=== PATIENT | female | born 1985 | race Caucasian/White ===

== ENCOUNTER 2016-11-01 22:37 | Emergency (ER) | payer BC ==
[2016-11-01 22:44] VITALS: BP 104/80; PULSE 92; BMI 17.7
--- NOTE | 2016-11-01 23:38 | PDOC ---
History of Present Illness - General Chief Complaint: Injury Stated Complaint: TOE INJURY Time Seen by Provider: 11/01/16 23:29 History Source: Patient - History of Present Illness Initial Comments: 11/01/16 23:36 30 year old female with left 3rd toe pain s/p injury 1 day ago. patient currently in [facility] for detox for suboxone. patient sent for medical clearance. Timing/Duration: 24 hours Past History - Past Medical History Allergies/Adverse Reactions: Allergies Allergy/AdvReac Type Severity Reaction Status Date / Time No Known Allergies Allergy Verified 11/01/16 22:44 Other medical history: denies - Suicide/Smoking/Psychosocial Hx Smoking History: Never smoked Drug/Substance Use Hx: Yes *Physical Exam - Vital Signs Last Vital Signs Temp Pulse Resp BP Pulse Ox 92 H 18 104/80 99 11/01/16 22:41 11/01/16 22:41 11/01/16 22:41 11/01/16 22:41 - Physical Exam General Appearance: Yes: Appropriately Dressed Extremity: positive: Other (left third toe distal end red/ swollen) Integumentary: positive: Normal Color, Dry, Warm Neurologic: positive: Fully Oriented, Alert Medical Decision Making - Medical Decision Making 11/02/16 03:07 Patient to return to Detox in [facility]. [employer] Bette made aware. *DC/Admit/Observation/Transfer Diagnosis at time of Disposition: Sprain of toe, third, left Qualifiers: Encounter type: initial encounter Qualified Code(s): S93.505A - Unspecified sprain of left lesser toe(s), initial encounter - Discharge Dispostion Disposition: HOME - Referrals Referrals: Wander Harrell MD [Staff Physician] - - Patient Instructions Printed Discharge Instructions: Toe Sprain Additional Instructions: xray negative for fracture. please follow up outpatient with podiatry/ ortho
== END 2016-11-02 03:47 | disposition other institution (70) ==
LOC: JER 22:37
DX: S93.515A Sprain of interphalangeal joint of left lesser toe(s), initial encounter (principal); W22.8XXA Striking against or struck by other objects, initial encounter; Y93.89 Activity, other specified; Y92.89 Other specified places as the place of occurrence of the external cause; Y99.8 Other external cause status; F11.20 Opioid dependence, uncomplicated
CPT/HCPCS: 73660-TC; 99281-25

== ENCOUNTER 2016-11-02 04:49 | Inpatient (IN) | payer BC ==
[2016-11-02] MEDS ORDERED: METHADONE HCL 10 MG TABLET (FOR DETOX USE ONLY) PO ONE ×2 (04:50→23:00)
[2016-11-02] MEDS ORDERED: MAG HYDROX/AL HYDROX/SIMETH 30 ML UNIT-DOSE CUP PO PRN (04:50)
[2016-11-02] MEDS ORDERED: NICOTINE POLACRILEX 2 MG GUM BC PRN (04:50)
[2016-11-02] MEDS ORDERED: diazePAM 5 MG TABLET PO ONE (04:50)
[2016-11-02] MEDS ORDERED: MAGNESIUM CITRATE 300 ML BOTTLE PO PRN (04:50)
[2016-11-02] MEDS ORDERED: diphenhydrAMINE HCL 50 MG CAPSULE PO PRN (04:50)
[2016-11-02] MEDS ORDERED: ACETAMINOPHEN 325 MG TABLET (FP) PO PRN (04:50)
[2016-11-02] MEDS ORDERED: LOPERAMIDE HCL 2 MG CAPSULE PO PRN (04:50)
[2016-11-02] MEDS ORDERED: IBUPROFEN 400 MG TABLET (FP) PO PRN (04:50)
[2016-11-02] MEDS ORDERED: P-EPHED 60MG/TRIPROLIDI 2.5MG TABLET PO PRN (04:50)
[2016-11-02] MEDS ORDERED: MENTHOL/PHENOL 1 EACH UD MM PRN (04:50)
[2016-11-02] MEDS ORDERED: guaiFENesin/D-METHORPHAN HB 10 ML UNIT-DOSE CUPS PO PRN (04:50)
[2016-11-02] MEDS ORDERED: MAGNESIUM HYDROX 2400MG/30ML ORAL SUSPENSION 30 ML CUP PO PRN (04:50)
--- NOTE | 2016-11-02 04:59 | HP ---
COWS - Scale Resting Pulse: 1= [place] 81-100 Sweatin=Flushed/Facial Moisture Restless Observation: 5= Unable to Sit Still Pupil Size: 1= Pupils >than Normal Bone or Joint Aches: 4=Acute Joint/Muscle Pain Runny Nose/ Eye Tearin= Constantly Teary/Runny GI Upset > 30mins: 2= Nausea/Diarrhea Tremor Observation: 2= Slight Tremor Visible Yawning Observation: 0= None Anxiety or Irritability: 2=Irritable/Anxious Goose Flesh Skin: 0=Smooth Skin COWS Score: 23 CIWA Score - CIWA Score Nausea/Vomitin Muscle Tremors: 4-Moderate,w/Arms Extend Anxiety: 4-Mod. Anxious/Guarded Agitation: 4-Moderately Restless Paroxysmal Sweats: 3 Orientation: 0-Oriented Tacttile Disturbances: 3-Moderate Itch/Numb/Burn Auditory Disturbances: 0-None Visual Disturbances: 0-None Headache: 0-None Present CIWA-Ar Total Score: 21 Admission ROS [facility] - HPI Chief Complaint: C/O WITHDRAWAL SX'S. SEEKING DETOX TXMENT Allergies/Adverse Reactions: Allergies Allergy/AdvReac Type Severity Reaction Status Date / Time No Known Allergies Allergy Verified 11/01/16 22:44 History of Present Illness: 30 Y.O. FEMALE ADMITTED FOR DETOX. THIS IS CLIENTS FIRST TIME IN DETOX. DENIES ANY SIGNIFICANT CLEAN TIME. SELF REFERRED. USING OPIATES AND BENZO'S. CLIENT IS A POOR HISTORIAN. HESITANT AND MINIMIZING HER SUBSTANCE ABUSE Exam Limitations: No Limitations - Ebola screening Have you traveled outside of the country in the last 21 days: No Have you had contact with anyone from an Ebola affected area: No Have you been sick,other than usual withdrawal symptoms: No Do you have a fever: No - Review of Systems Constitutional: Chills, Loss of Appetite, Malaise, Night Sweats, Changes in sleep EENT: reports: Other (RINORRHEA) Respiratory: reports: No Symptoms reported Cardiac: reports: No Symptoms Reported GI: reports: Nausea, Poor Appetite, Abdominal cramping : reports: Other (HESITANCY) Musculoskeletal: reports: Back Pain, Joint Pain Integumentary: reports: No Symptoms Reported Neuro: reports: No Symptoms reported Endocrine: reports: No Symptoms Reported Hematology: reports: No Symptoms Reported Psychiatric: reports: Anxious, Depressed Other Systems: Reviewed and Negative Patient History - Patient Medical History Hx Anemia: No Hx Asthma: No Hx Chronic Obstructive Pulmonary Disease (COPD): No Hx Cancer: No Hx Cardiac Disorders: No Hx Congestive Heart Failure: No Hx Hypertension: No Hx Hypercholesterolemia: No Hx Pacemaker: No HX Cerebrovascular Accident: No Hx Seizures: No Hx Dementia: No Hx Diabetes: No Hx Gastrointestinal Disorders: No Hx Liver Disease: No Hx Genitourinary Disorders: No Hx Sexually Transmitted Disorders: No Hx Renal Disease (ESRD): No Hx Thyroid Disease: No Hx Human Immunodeficiency Virus (HIV): No Hx Hepatitis C: No Hx Depression: Yes Hx Suicide Attempt: No Hx Bipolar Disorder: No Hx Schizophrenia: No Other Medical History: ANXIETY - Patient Surgical History Past Surgical History: No - PPD History Previous Implant?: Yes Documented Results: Negative w/o proof Implanted On Prior [facility] Admission?: No PPD to be Administered?: Yes - Smoking Cessation Smoking history: Never smoked Cigars Per Day: 0 Hx Chewing Tobacco Use: No Initiated information on smoking cessation: No - Substance & Tx. History Hx Alcohol Use: No Hx Substance Use: Yes Substance Use Type: Cocaine, Heroin, Opiates, Tranquilizers (BENZO) Hx Substance Use Treatment: No - Substances Abused HEROIN Route: Inhalation Frequency: Daily Amount used: 1GM Age of first use: 30 (3 MONTHS AGO) Date of Last Use: 11/01/16 COCAINE Route: Inhalation Frequency: 3-6 times per week Amount used: $20 Age of first use: 29 Date of Last Use: 10/29/16 XANAX/VALIUM Route: Oral Frequency: 1-3 times last 30 days Amount used: 5MG Age of first use: 18 Date of Last Use: 11/01/16 Family Disease History - Family Disease History Family History: Denies Admission Physical Exam [facility] - Physical General Appearance: Yes: Mild Distress, Thin, Tremorous, Anxious HEENTM: Yes: EOMI, Normocephalic, LAUREN, Pharynx Normal Respiratory: Yes: Chest Non-Tender, Lungs Clear, Normal Breath Sounds, No Respiratory Distress, No Accessory Muscle Use Neck: Yes: No masses,lesions,Nodules, Supple, Trachea in good position Breast: Yes: Breast Exam Deferred Cardiology: Yes: Regular Rhythm, Regular Rate, S1, S2 Abdominal: Yes: Normal Bowel Sounds, Non Tender, Soft Genitourinary: Yes: Within Normal Limits Back: Yes: Normal Inspection Musculoskeletal: Yes: full range of Motion, Other (L FOOT 3RD DIGIT SPRAIN. SEEN AT [facility] NO FX) Extremities: Yes: Tremors, Other (L FOOT 3 RD TOE SPRAIN/ RED SWOLLEN AND SLIGHT DISCOLORATION) Neurological: Yes: medical records supervisor II-XII NML intact, Fully Oriented, Alert, Motor Strength 5/5 Integumentary: Yes: Clammy Lymphatic: Yes: Within Normal Limits - Diagnostic (1) Sprain of toe, third, left Current Visit: Yes Status: Acute Qualifiers: Encounter type: initial encounter Qualified Code(s): S93.505A - Unspecified sprain of left lesser toe(s), initial encounter (2) Opioid dependence with withdrawal Current Visit: Yes Status: Chronic (3) Cocaine dependence, uncomplicated Current Visit: Yes Status: Chronic (4) Sedative, hypnotic or anxiolytic dependence with withdrawal, uncomplicated Current Visit: Yes Status: Chronic Cleared for Admission S - Detox or Rehab S Level of Care: Medically Managed Detox Regimen/Protocol: Methadone/Valium BHS Breath Alcohol Content Breath Alcohol Content: 0 Vital Signs - Vital Signs Vital Signs Refused: No Temperature: 97 F Temperature Source: Oral Pulse Rate: 18 Respiratory Rate: 88 Blood Pressure: 119/70 BP Location: Left Arm Blood Pressure Position: Sitting - Height Height: 5 ft 6 in - Weight Weight: 51.71 kg Weight Measurement Method: Standing Scale Body Mass Index (BMI): 18.3 - Bowel Function Bowel Movement: No Urine Pregancy Test - Test Device Lot Number: [id number] Expiration Date: 05/14/18 - Control Horizontal Line in Upper Control Window?: Yes - Result Urine Test Results: Negative- NO Line Present Urine Drug Screen - Test Device Lot Number: [id number] Expiration Date: 07/14/18 - Control Is Test Valid: Yes - Results Drug Screen Negative: No Urine Drug Screen Results: WILFREDO-Cocaine, OPI-Opiates, BZO-Benzodiazepines
[2016-11-02 05:08] VITALS: BMI 18.3
[2016-11-02] MEDS: diazePAM 5 MG TABLET PO SCH ×3 (06:15→22:14)
[2016-11-02 09:54] LABS: MCH 28.7 pg (25.7-33.7); MCHC 34.7 g/dl (32.0-36.0); MEAN CELL VOLUME 82.6 fl (80-96); MEAN PLT VOLUME 10.1 fl (7.5-11.1); PLATELET COUNT 196 K/MM3 (134-434); RDW 13.1 % (11.6-15.6); WHITE BLOOD COUNT 7.3 K/mm3 (4.0-10.0)
[2016-11-02 09:59] LABS: ALBUMIN 3.4 g/dl (3.4-5.0); SGOT/AST 14 U/L (15-37)
[2016-11-02 10:02] LABS: ALK PHOS 58 U/L (45-117); ANION GAP 5 (8-16); BILIRUBIN,TOTAL 0.6 mg/dL (0.2-1.0); CALCIUM 8.7 mg/dL (8.5-10.1); CO2 28 mmol/L (21-32); CREATININE 0.8 mg/dL (0.55-1.02); GLUCOSE,RANDOM 109 mg/dL (74-106); SGPT/ALT 19 U/L (12-78); TOT PROT 6.3 g/dl (6.4-8.2)
--- NOTE | 2016-11-02 10:13 | PN ---
[facility] Progress Note Note: called by radiologist, xray revewlwed toe fx, patient informed, stable with pain started on naprosyn 500mg bi atc with protonix daiy.
[2016-11-02] MEDS: diazePAM 5 MG TABLET PO PRN ×2 (10:33→17:26)
[2016-11-02] MEDS: PRENATAL VITAMINS W/ FOLIC ACID TABLET (FP) PO SCH (10:33)
[2016-11-02] MEDS: NAPROXEN 500 MG TABLET (FP) PO SCH ×2 (11:42→22:14)
[2016-11-02] MEDS: PANTOPRAZOLE 40 MG TABLET (FP) PO SCH (11:42)
--- NOTE | 2016-11-02 11:53 | CONSULT ---
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 Substance Abuse History: Patient reports started heroin 4 months ago, first she was taking pain killers, she sniffs heroin daily, cocaine at age 9, she uses 2- 3 times a week for $20, Xanax age at first use - 18, 1-3 times a month. Medical History: pain to third left digit ( toe) due to the sprained Psychiatric History: patient reports history of depression and anxiety, about 4 months ago seen by private psychiatrist and was taking Celexa 20 mg daily, Wellbutrin SR150 mg daily and Gabapentin 400 mg po hs. Reports no history of psychiatric hospitalizations. Physical/Sexual Abuse/Trauma History: Denies history of sexual, physical and verbal abuse. Mental Status Exam - Mental Status Exam Alert and Oriented to: Time, Place, Person Cognitive Function: Grossly Intact Patient Appearance: Unkempt Mood: Sad, Anxious Affect: Mood Congruent Patient Behavior: Appropriate, Cooperative Speech Pattern: Clear, Appropriate Voice Loudness: Normal Thought Process: Intact, Goal Oriented Thought Disorder: Not Present Hallucinations: Denies Suicidal Ideation: Denies Homicidal Ideation: Denies Insight/Judgement: Fair Sleep: Fair Appetite: Fair Muscle strength/Tone: Normal Gait/Station: Normal Psychiatric Findings - Problem List ([place] 1, 2,3) (1) Cocaine dependence, uncomplicated Current Visit: Yes Status: Chronic (2) Opioid dependence with withdrawal Current Visit: Yes Status: Chronic (3) Sedative, hypnotic or anxiolytic dependence with withdrawal, uncomplicated Current Visit: Yes Status: Chronic (4) Depressive disorder Current Visit: Yes Status: Acute - Initial Treatment Plan Initial Treatment Plan: will continue Celexa 20 mg po daily, Wellbutrin 150 mg daily and Gabapentin 400 mg po hs.
[2016-11-02 14:15] LABS: URINE APPEARANCE CLEAR; URINE BILIRUBIN NEGATIVE (NEGATIVE); URINE BLOOD NEGATIVE (NEGATIVE); URINE COLOR LTYELLOW; URINE GLUCOSE (UA) NEGATIVE (NEGATIVE); URINE KETONE NEGATIVE (NEGATIVE); URINE LEUK ESTERASE TRACE (NEGATIVE); URINE NITRITE NEGATIVE (NEGATIVE); URINE PROTEIN NEGATIVE (NEGATIVE); URINE UROBILINOGEN NEGATIVE mg/dL (0.2-1.0)
[2016-11-02 14:18] LABS: URINE BACTERIA MANY /hpf (NONE SEEN); URINE RBC <1 /hpf (0-3); URINE WBC 2 /hpf (3-5)
[2016-11-02] MEDS ORDERED: cloNIDine HCL 0.1 MG TABLET PO ONE (14:57)
[2016-11-02] MEDS: CYCLOBENZAPRINE HCL 10 MG TABLET (FP) PO SCH ×2 (15:07→22:14)
[2016-11-02] MEDS: THIAMINE HCL 100 MG TABLET (FP) PO SCH (22:14)
[2016-11-02] MEDS: cloNIDine HCL 0.1 MG TABLET PO SCH (22:14)
[2016-11-02] MEDS: GABAPENTIN 400 MG CAPSULE (FP) PO SCH (22:14)
--- NOTE | 2016-11-02 22:22 | EKG ---
Test Reason : Blood Pressure : / mmHG Vent. Rate : 067 BPM Atrial Rate : 067 BPM P-R Int : 132 ms QRS Dur : 082 ms QT Int : 388 ms P-R-T Axes : 073 081 046 degrees QTc Int : 409 ms NORMAL SINUS RHYTHM WITH SINUS ARRHYTHMIA NORMAL ECG NO PREVIOUS ECGS AVAILABLE Confirmed by KIZZY JONES MD ([id number]) on 11/02/2016 10:22:24 PM Referred By: Confirmed By:KIZZY JONES MD
[2016-11-03] MEDS: diazePAM 5 MG TABLET PO SCH ×3 (05:34→22:12)
[2016-11-03] MEDS: CYCLOBENZAPRINE HCL 10 MG TABLET (FP) PO SCH ×3 (05:34→22:12)
[2016-11-03] MEDS ORDERED: METHADONE HCL 10 MG TABLET (FOR DETOX USE ONLY) PO SCH (10:00)
[2016-11-03] MEDS: PRENATAL VITAMINS W/ FOLIC ACID TABLET (FP) PO SCH (10:25)
[2016-11-03] MEDS: CITALOPRAM HYDROBROMIDE 20 MG TABLET (FP) PO SCH (10:25)
[2016-11-03] MEDS: PANTOPRAZOLE 40 MG TABLET (FP) PO SCH (10:25)
[2016-11-03] MEDS: diazePAM 5 MG TABLET PO PRN ×2 (10:25→22:12)
[2016-11-03] MEDS: cloNIDine HCL 0.1 MG TABLET PO SCH ×2 (10:25→22:11)
[2016-11-03] MEDS: NAPROXEN 500 MG TABLET (FP) PO SCH ×2 (10:25→22:11)
[2016-11-03] MEDS ORDERED: HALOPERIDOL 2 MG TABLET PO STA (11:19)
[2016-11-03] MEDS ORDERED: diphenhydrAMINE HCL 25 MG CAPSULE (FP) PO STA (11:20)
--- NOTE | 2016-11-03 11:26 | PN ---
Psychiatric Progress Note Vital Signs: Vital Signs Period Temp Pulse Resp BP Sys/Chau Pulse Ox Last 24 Hr 97.6 F-97.9 F 73-90 16-18 86-127/51-72 Date of Session: 11/03/16 Chief Complaint:: Anxiet, Irritability, agitation HPI: As per nursing stuff patient is agitated and anxious since today am Current Medications: Active Medications Generic Name Dose Route Start Last Admin Trade Name Freq PRN Reason Stop Dose Admin Acetaminophen 650 mg 11/02/16 04:50 Tylenol - PO Q4H PRN FEVER OR PAIN Al Hydroxide/Mg Hydroxide 30 ml 11/02/16 04:50 Mylanta Oral Suspension - PO Q6H PRN DYSPEPSIA Bupropion HCl 150 mg 11/03/16 10:00 11/03/16 10:25 Wellbutrin Xl - PO 150 mg DAILY REBA Administration Citalopram Hydrobromide 20 mg 11/03/16 10:00 11/03/16 10:25 Celexa - PO 20 mg DAILY REBA Administration Clonidine 0.1 mg 11/02/16 22:00 11/03/16 10:25 Catapres - PO 0.1 mg BID REBA Administration Cyclobenzaprine HCl 10 mg 11/02/16 15:00 11/03/16 05:34 Flexeril - PO 10 mg TID REBA Administration Diazepam 10 mg 11/02/16 04:50 11/03/16 10:25 Valium - PO 11/05/16 04:50 10 mg Q4H PRN Administration WITHDRAWAL(CONT SUBST) Diazepam 5 mg 11/02/16 06:00 11/03/16 05:34 Valium - PO 11/03/16 22:01 5 mg TID REBA Administration Diazepam 5 mg 11/04/16 10:00 Valium - PO 11/05/16 22:01 BID REBA Diazepam 5 mg 11/06/16 10:00 Valium - PO 11/06/16 10:01 DAILY REBA Diphenhydramine HCl 50 mg 11/02/16 04:50 11/02/16 22:14 Benadryl - PO 50 mg HSMR1 PRN Administration INSOMNIA Diphenhydramine HCl 25 mg 11/03/16 11:20 Benadryl - PO 11/03/16 11:21 ONCE STA Eucalyptus/Menthol/Phenol/Sorbitol 1 each 11/02/16 04:50 Cepastat Lozenge - MM Q4H PRN SORE THROAT Gabapentin 400 mg 11/02/16 22:00 11/02/16 22:14 Neurontin - PO 400 mg HS REBA Administration Guaifenesin 10 ml 11/02/16 04:50 Robitussin Dm - PO Q6H PRN COUGH Haloperidol 2 mg 11/03/16 11:19 Haldol - PO 11/03/16 11:20 ONCE STA Haloperidol 1 mg 11/03/16 11:20 Haldol - PO Q4HWA PRN AGITATION Hydroxyzine Pamoate 50 mg 11/02/16 04:50 Vistaril - PO Q4H PRN AGITATION Loperamide HCl 4 mg 11/02/16 04:50 Imodium - PO Q6H PRN DIARRHEA Magnesium Citrate 300 ml 11/02/16 04:50 Citroma - PO Q48H PRN CONSTIPATION Magnesium Hydroxide 30 ml 11/02/16 04:50 Milk Of Magnesia - PO DAILY PRN CONSTIPATION Methadone HCl 10 mg 11/06/16 10:00 Dolophine - PO 11/06/16 10:01 DAILY REBA Methadone HCl 15 mg 11/04/16 10:00 Dolophine - PO 11/05/16 10:01 DAILY REBA Methadone HCl 5 mg 11/07/16 06:00 Dolophine - PO 11/07/16 06:01 DAILY@0600 REBA Naproxen 500 mg 11/02/16 10:15 11/03/16 10:25 Naprosyn - PO 500 mg BID REBA Administration Nicotine Polacrilex 2 mg 11/02/16 04:50 Nicorette Gum - BC Q2H PRN NICOTINE REPLACEMENT RX Pantoprazole Sodium 40 mg 11/02/16 10:41 11/03/16 10:25 Protonix - PO 40 mg DAILY REBA Administration Multivit/Folic Acid/Iron 1 tab 11/02/16 10:00 11/03/16 10:25 Vitamins ([facility]) - PO 1 tab DAILY REBA Administration Pseudoephedrine/Triprolidine 1 combo 11/02/16 04:50 Actifed - PO TID PRN NASAL CONGESTION Thiamine HCl 100 mg 11/02/16 22:00 11/02/16 22:14 Vitamin B1 - PO 100 mg HS REBA Administration Medication(s) Change(s): Haldol 2mg pom stat. Benadryl 25mg po stat. Haldol 1mg po prn q4 for anxiety and agitation Mental Status Exam - Mental Status Exam Alert and Oriented to: Person Cognitive Function: Fair Patient Appearance: Unkempt Mood: Anxious, Irritable Affect: Mood Congruent Patient Behavior: Cooperative Speech Pattern: Appropriate Voice Loudness: Mildly Soft/Quiet Thought Process: Goal Oriented Thought Disorder: Being Controlled Hallucinations: Denies Suicidal Ideation: Denies Homicidal Ideation: Denies Insight/Judgement: Fair Sleep: Difficulty falling asleep Appetite: Weight gain Muscle strength/Tone: Normal Gait/Station: Normal Additional Comments: Haldol 2mg pom stat. Benadryl 25mg po stat. Haldol 1mg po prn q4 for anxiety and agitation Psychiatric Treatment Plan - Problem List (1) Depressive disorder Current Visit: Yes (2) Cocaine dependence, uncomplicated Current Visit: Yes (3) Opioid dependence with withdrawal Current Visit: Yes (4) Sedative, hypnotic or anxiolytic dependence with withdrawal, uncomplicated Current Visit: Yes (5) Drug-induced mood disorder Current Visit: Yes
[2016-11-03] MEDS ORDERED: HALOPERIDOL 1 MG TABLET (FP) PO STA (11:28)
--- NOTE | 2016-11-03 11:55 | PN ---
[facility] CIWA - CIWA Score Nausea/Vomitin-No Nausea/No Vomiting Muscle Tremors: 4-Moderate,w/Arms Extend Anxiety: 3 Agitation: 4-Moderately Restless Paroxysmal Sweats: 3 Orientation: 0-Oriented Tacttile Disturbances: 0-None Auditory Disturbances: 0-None Visual Disturbances: 0-None Headache: 0-None Present CIWA-Ar Total Score: 14 S COWS - Scale Resting Pulse: 1= [place] 81-100 Sweatin=Flushed/Facial Moisture Restless Observation: 1= Difficult to Sit Still Pupil Size: 0= Normal to Room Light Bone or Joint Aches: 2= Severe Diffuse Aches Runny Nose/ Eye Tearin= Runny Nose/Eyes GI Upset > 30mins: 2= Nausea/Diarrhea Tremor Observation of Outstretched Hands: 2= Slight Tremor Visible Yawning Observation: 2= >3x During Session Anxiety or Irritability: 2=Irritable/Anxious Goose Flesh Skin: 3=[place] COWS Score: 19 [facility] Progress Note (SOAP) Subjective: agitation anxiety teary sweats body aches irritable interrupted sleep Objective: 11/03/16 11:53 Vital Signs Temperature 97.7 F 11/03/16 10:26 Pulse Rate 81 11/03/16 10:26 Respiratory Rate 18 11/03/16 10:26 Blood Pressure 104/65 11/03/16 10:26 O2 Sat by Pulse Oximetry (%) Laboratory Tests 11/02/16 11/02/16 11/02/16 07:00 07:00 07:00 WBC 7.3 RBC 4.24 Hgb 12.2 Hct 35.0 MCV 82.6 MCH 28.7 MCHC 34.7 RDW 13.1 Plt Count 196 MPV 10.1 Sodium 139 Potassium 3.6 Chloride 106 Carbon Dioxide 28 Anion Gap 5 L BUN 9 Creatinine 0.8 Creat Clearance w eGFR > 60 Random Glucose 109 H Calcium 8.7 Total Bilirubin 0.6 AST 14 L ALT 19 Alkaline Phosphatase 58 Total Protein 6.3 L Albumin 3.4 Urine Color Urine Appearance Urine pH Ur Specific [place] Urine Protein Urine Glucose (UA) Urine Ketones Urine Blood Urine Nitrite Urine Bilirubin Urine Urobilinogen Urine RBC Urine WBC Ur Epithelial Cells Urine Bacteria RPR Titer Nonreactive 11/02/16 08:30 WBC RBC Hgb Hct MCV MCH MCHC RDW Plt Count MPV Sodium Potassium Chloride Carbon Dioxide Anion Gap BUN Creatinine Creat Clearance w eGFR Random Glucose Calcium Total Bilirubin AST ALT Alkaline Phosphatase Total Protein Albumin Urine Color Ltyellow Urine Appearance Clear Urine pH 7.0 Ur Specific [place] 1.010 Urine Protein Negative Urine Glucose (UA) Negative Urine Ketones Negative Urine Blood Negative Urine Nitrite Negative Urine Bilirubin Negative Urine Urobilinogen Negative Urine RBC <1 Urine WBC 2 Ur Epithelial Cells Few Urine Bacteria Many RPR Titer awake/alert ambulating no acute distress Assessment: 11/03/16 11:54 withdrawal sx Plan: continue detox increase fluids psych ordered for revisit
[2016-11-03] MEDS: THIAMINE HCL 100 MG TABLET (FP) PO SCH (22:11)
[2016-11-03] MEDS: GABAPENTIN 400 MG CAPSULE (FP) PO SCH (22:11)
[2016-11-03] MEDS: DOCUSATE SODIUM 100 MG CAPSULE (FP) PO SCH (22:12)
[2016-11-04] MEDS: CYCLOBENZAPRINE HCL 10 MG TABLET (FP) PO SCH ×3 (05:54→22:25)
[2016-11-04] MEDS: diazePAM 5 MG TABLET PO PRN ×2 (05:55→14:21)
[2016-11-04] MEDS: cloNIDine HCL 0.1 MG TABLET PO SCH ×2 (10:33→22:24)
[2016-11-04] MEDS: PANTOPRAZOLE 40 MG TABLET (FP) PO SCH (10:33)
[2016-11-04] MEDS: diazePAM 5 MG TABLET PO SCH ×2 (10:33→22:26)
[2016-11-04] MEDS: CITALOPRAM HYDROBROMIDE 20 MG TABLET (FP) PO SCH (10:33)
[2016-11-04] MEDS: METHADONE HCL 5 MG TABLET (FOR DETOX USE ONLY) PO SCH (10:33)
[2016-11-04] MEDS: PRENATAL VITAMINS W/ FOLIC ACID TABLET (FP) PO SCH (10:33)
[2016-11-04] MEDS: NAPROXEN 500 MG TABLET (FP) PO SCH ×2 (10:33→22:26)
[2016-11-04] MEDS: HALOPERIDOL 1 MG TABLET (FP) PO PRN ×2 (11:28→22:26)
[2016-11-04] MEDS: hydrOXYzine PAMOATE 50 MG CAPSULE (FP) PO PRN (11:29)
--- NOTE | 2016-11-04 12:29 | PN ---
[facility] CIWA - CIWA Score Nausea/Vomitin-No Nausea/No Vomiting Muscle Tremors: 4-Moderate,w/Arms Extend Anxiety: 3 Agitation: 4-Moderately Restless Paroxysmal Sweats: 3 Orientation: 0-Oriented Tacttile Disturbances: 0-None Auditory Disturbances: 0-None Visual Disturbances: 0-None Headache: 0-None Present CIWA-Ar Total Score: 14 S COWS - Scale Resting Pulse: 1= [place] 81-100 Sweatin=Flushed/Facial Moisture Restless Observation: 1= Difficult to Sit Still Pupil Size: 0= Normal to Room Light Bone or Joint Aches: 1= Mild Discomfort Runny Nose/ Eye Tearin= None GI Upset > 30mins: 0= None Tremor Observation of Outstretched Hands: 2= Slight Tremor Visible Yawning Observation: 2= >3x During Session Anxiety or Irritability: 2=Irritable/Anxious Goose Flesh Skin: 0=Smooth Skin COWS Score: 11 S Progress Note (SOAP) Subjective: sweats irritable interrupted sleep agitation Objective: 11/04/16 12:28 Vital Signs Temperature 97.7 F 11/04/16 09:52 Pulse Rate 88 11/04/16 09:52 Respiratory Rate 16 11/04/16 09:52 Blood Pressure 106/58 11/04/16 09:52 O2 Sat by Pulse Oximetry (%) Laboratory Tests 11/02/16 11/02/16 11/02/16 07:00 07:00 07:00 WBC 7.3 RBC 4.24 Hgb 12.2 Hct 35.0 MCV 82.6 MCH 28.7 MCHC 34.7 RDW 13.1 Plt Count 196 MPV 10.1 Sodium 139 Potassium 3.6 Chloride 106 Carbon Dioxide 28 Anion Gap 5 L BUN 9 Creatinine 0.8 Creat Clearance w eGFR > 60 Random Glucose 109 H Calcium 8.7 Total Bilirubin 0.6 AST 14 L ALT 19 Alkaline Phosphatase 58 Total Protein 6.3 L Albumin 3.4 Urine Color Urine Appearance Urine pH Ur Specific [place] Urine Protein Urine Glucose (UA) Urine Ketones Urine Blood Urine Nitrite Urine Bilirubin Urine Urobilinogen Urine RBC Urine WBC Ur Epithelial Cells Urine Bacteria RPR Titer Nonreactive 11/02/16 08:30 WBC RBC Hgb Hct MCV MCH MCHC RDW Plt Count MPV Sodium Potassium Chloride Carbon Dioxide Anion Gap BUN Creatinine Creat Clearance w eGFR Random Glucose Calcium Total Bilirubin AST ALT Alkaline Phosphatase Total Protein Albumin Urine Color Ltyellow Urine Appearance Clear Urine pH 7.0 Ur Specific [place] 1.010 Urine Protein Negative Urine Glucose (UA) Negative Urine Ketones Negative Urine Blood Negative Urine Nitrite Negative Urine Bilirubin Negative Urine Urobilinogen Negative Urine RBC <1 Urine WBC 2 Ur Epithelial Cells Few Urine Bacteria Many RPR Titer aaox3 ambulating no acute distress Assessment: 11/04/16 12:29 withdrawal sx Plan: continue detox increase fluids
[2016-11-04] MEDS: DOCUSATE SODIUM 100 MG CAPSULE (FP) PO SCH (22:24)
[2016-11-04] MEDS: GABAPENTIN 400 MG CAPSULE (FP) PO SCH (22:25)
[2016-11-04] MEDS: THIAMINE HCL 100 MG TABLET (FP) PO SCH (22:26)
[2016-11-05] MEDS: CYCLOBENZAPRINE HCL 10 MG TABLET (FP) PO SCH ×3 (06:05→22:31)
--- NOTE | 2016-11-05 10:25 | PN ---
[facility] Progress Note (SOAP) Subjective: nausa, sweats, interrupteed sleep, anxiety, tremors Objective: 11/05/16 10:22 Vital Signs - 8 hr 11/05/16 11/05/16 07:17 10:08 Temperature 97.2 F L 97.3 F L Pulse Rate 81 84 Respiratory 18 18 Rate Blood Pressure 99/71 99/60 Laboratory Tests 11/02/16 11/02/16 11/02/16 07:00 07:00 07:00 WBC 7.3 RBC 4.24 Hgb 12.2 Hct 35.0 MCV 82.6 MCH 28.7 MCHC 34.7 RDW 13.1 Plt Count 196 MPV 10.1 Sodium 139 Potassium 3.6 Chloride 106 Carbon Dioxide 28 Anion Gap 5 L BUN 9 Creatinine 0.8 Creat Clearance w eGFR > 60 Random Glucose 109 H Calcium 8.7 Total Bilirubin 0.6 AST 14 L ALT 19 Alkaline Phosphatase 58 Total Protein 6.3 L Albumin 3.4 Urine Color Urine Appearance Urine pH Ur Specific [place] Urine Protein Urine Glucose (UA) Urine Ketones Urine Blood Urine Nitrite Urine Bilirubin Urine Urobilinogen Urine RBC Urine WBC Ur Epithelial Cells Urine Bacteria RPR Titer Nonreactive 11/02/16 08:30 WBC RBC Hgb Hct MCV MCH MCHC RDW Plt Count MPV Sodium Potassium Chloride Carbon Dioxide Anion Gap BUN Creatinine Creat Clearance w eGFR Random Glucose Calcium Total Bilirubin AST ALT Alkaline Phosphatase Total Protein Albumin Urine Color Ltyellow Urine Appearance Clear Urine pH 7.0 Ur Specific [place] 1.010 Urine Protein Negative Urine Glucose (UA) Negative Urine Ketones Negative Urine Blood Negative Urine Nitrite Negative Urine Bilirubin Negative Urine Urobilinogen Negative Urine RBC <1 Urine WBC 2 Ur Epithelial Cells Few Urine Bacteria Many RPR Titer Assessment: 11/05/16 10:23 withdrawal sx Plan: cont detox, fluids, encourage ambulation
[2016-11-05] MEDS: diazePAM 5 MG TABLET PO SCH ×2 (10:48→22:31)
[2016-11-05] MEDS: METHADONE HCL 5 MG TABLET (FOR DETOX USE ONLY) PO SCH (10:48)
[2016-11-05] MEDS: CITALOPRAM HYDROBROMIDE 20 MG TABLET (FP) PO SCH (10:48)
[2016-11-05] MEDS: PANTOPRAZOLE 40 MG TABLET (FP) PO SCH (10:48)
[2016-11-05] MEDS: PRENATAL VITAMINS W/ FOLIC ACID TABLET (FP) PO SCH (10:48)
[2016-11-05] MEDS: NAPROXEN 500 MG TABLET (FP) PO SCH ×2 (10:48→22:31)
[2016-11-05] MEDS: cloNIDine HCL 0.1 MG TABLET PO SCH ×2 (10:49→22:30)
[2016-11-05] MEDS: hydrOXYzine PAMOATE 50 MG CAPSULE (FP) PO PRN (17:18)
[2016-11-05] MEDS: HALOPERIDOL 1 MG TABLET (FP) PO PRN (17:18)
[2016-11-05] MEDS: THIAMINE HCL 100 MG TABLET (FP) PO SCH (22:30)
[2016-11-05] MEDS: DOCUSATE SODIUM 100 MG CAPSULE (FP) PO SCH (22:30)
[2016-11-05] MEDS: GABAPENTIN 400 MG CAPSULE (FP) PO SCH (22:30)
[2016-11-06] MEDS: CYCLOBENZAPRINE HCL 10 MG TABLET (FP) PO SCH (05:54)
[2016-11-06] MEDS: hydrOXYzine PAMOATE 50 MG CAPSULE (FP) PO PRN (06:15)
[2016-11-06] MEDS ORDERED: METHADONE HCL 10 MG TABLET (FOR DETOX USE ONLY) PO SCH (10:00)
[2016-11-06] MEDS ORDERED: diazePAM 5 MG TABLET PO SCH (10:00)
--- NOTE | 2016-11-06 10:23 | PN ---
[facility] Progress Note (SOAP) Subjective: alert,no complaint Objective: 11/06/16 10:21 Vital Signs Temperature 98.1 F 11/06/16 06:31 Pulse Rate 76 11/06/16 06:31 Respiratory Rate 18 11/06/16 06:31 Blood Pressure 117/69 11/06/16 06:31 O2 Sat by Pulse Oximetry (%) Assessment: 11/06/16 10:22 patient is stable for discharge Plan: patient would like to be discharged,stable for discharge,did not want to go to rehab,discharge today
--- NOTE | 2016-11-06 10:25 | DS ---
[facility] Detox Discharge Summary Admission Date: 11/02/16 Discharge Date: 11/06/16 - History Present History: Cocaine Dependence, Opioid Dependence, Sedative Dependence Additional Comments: patient is stable for discharge today,follow up with after care program as arrangement - Physical Exam Results Vital Signs: Vital Signs Temperature 98.1 F 11/06/16 06:31 Pulse Rate 76 11/06/16 06:31 Respiratory Rate 18 11/06/16 06:31 Blood Pressure 117/69 11/06/16 06:31 O2 Sat by Pulse Oximetry (%) - Treatment Hospital Course: Detox Protocol Followed, Detoxed Safely, Responded well, Discharged Condition Good Patient has Accepted a Rehab Referral to: declined - Medication Discharge Medications: Ambulatory Orders Bupropion HCl [Wellbutrin Sr] 150 mg PO DAILY #30 tab 11/02/16 Bupropion HCl [Wellbutrin Sr] 150 mg PO DAILY #30 tab 11/02/16 Citalopram Hydrobromide [Celexa -] 10 mg PO DAILY 11/02/16 Citalopram Hydrobromide [Celexa -] 20 mg PO DAILY #30 tablet 11/02/16 Gabapentin [Neurontin -] 400 mg PO HS #30 tab 11/02/16 - Diagnosis (1) Depressive disorder Current Visit: Yes Status: Acute (2) Cocaine dependence, uncomplicated Current Visit: Yes Status: Chronic (3) Drug-induced mood disorder Current Visit: Yes Status: Chronic (4) Opioid dependence with withdrawal Current Visit: Yes Status: Chronic (5) Sedative, hypnotic or anxiolytic dependence with withdrawal, uncomplicated Current Visit: Yes Status: Chronic (6) Fracture of toe of left foot Current Visit: Yes Status: Acute Qualifiers: Encounter type: initial encounter Toe: lesser toe Fracture type: closed Phalanx: distal Fracture alignment: nondisplaced Qualified Code(s): S92.535A - Nondisplaced fracture of distal phalanx of left lesser toe(s ), initial encounter for closed fracture - AMA Did Patient Leave Against Medical Advice: No
[2016-11-06] MEDS: PANTOPRAZOLE 40 MG TABLET (FP) PO SCH (10:29)
[2016-11-06] MEDS: CITALOPRAM HYDROBROMIDE 20 MG TABLET (FP) PO SCH (10:29)
[2016-11-06] MEDS: NAPROXEN 500 MG TABLET (FP) PO SCH (10:29)
[2016-11-06] MEDS: cloNIDine HCL 0.1 MG TABLET PO SCH (10:29)
[2016-11-06] MEDS: PRENATAL VITAMINS W/ FOLIC ACID TABLET (FP) PO SCH (10:29)
[2016-11-06 11:13] VITALS: BP 107/57; PULSE 90; TEMP 97.9
[2016-11-07] MEDS ORDERED: METHADONE HCL 5 MG TABLET (FOR DETOX USE ONLY) PO SCH (06:00)
== END 2016-11-06 12:45 | disposition home or self-care (01) | DRG 774 ==
LOC: YASAS 04:49 → Y6N 04:51
PROVIDERS: ADMIT Internal Medicine; ATTEND Internal Medicine
PROC: HZ2ZZZZ Detoxification Services for Substance Abuse Treatment (ICD-10-PCS; principal; 2016-11-02)
DX: F10.230 Alcohol dependence with withdrawal, uncomplicated (principal); F13.230 Sedative, hypnotic or anxiolytic dependence with withdrawal, uncomplicated; F14.20 Cocaine dependence, uncomplicated; F39 Unspecified mood [affective] disorder; F19.24 Other psychoactive substance dependence with psychoactive substance-induced mood disorder; S92.535A Nondisplaced fracture of distal phalanx of left lesser toe(s), initial encounter for closed fracture; W22.8XXA Striking against or struck by other objects, initial encounter; Y93.89 Activity, other specified; Y92.89 Other specified places as the place of occurrence of the external cause
CPT/HCPCS: 36415; 80053; 81003; 81015; 85027; 86593; 86803; 93005; 93010

== ENCOUNTER 2020-03-24 10:19 | Inpatient (IN) | payer BC ==
[2020-03-24 11:12] VITALS: BMI 19.7
[2020-03-24] MEDS ORDERED: MAGNESIUM CITRATE 300 ML BOTTLE PO PRN (11:39)
[2020-03-24] MEDS ORDERED: MENTHOL/PHENOL 1 EACH UD MM PRN (11:39)
[2020-03-24] MEDS ORDERED: BISMUTH SUBSALICYLATE 524 MG/30 ML UD PO PRN (11:39)
[2020-03-24] MEDS ORDERED: ONDANSETRON *ODT* 4 MG TABLET SL PRN (11:39)
[2020-03-24] MEDS ORDERED: MAGNESIUM HYDROX 2400MG/30ML ORAL SUSPENSION 30 ML CUP PO PRN (11:39)
[2020-03-24] MEDS ORDERED: ACETAMINOPHEN 325 MG TABLET (FP) PO PRN ×2 (11:39)
[2020-03-24] MEDS ORDERED: METHADONE HCL 10 MG TABLET (FOR DETOX USE ONLY) PO ONE ×2 (11:39→12:45)
[2020-03-24] MEDS ORDERED: MAG HYDROX/AL HYDROX/SIMETH 30 ML UNIT-DOSE CUP PO PRN (11:39)
[2020-03-24] MEDS ORDERED: IBUPROFEN 400 MG TABLET (FP) PO PRN (11:39)
[2020-03-24] MEDS ORDERED: METHADONE (DETOX) 20 MG, METHADONE (DETOX) 5 MG PO ONE (12:15)
[2020-03-24] MEDS ORDERED: METHADONE (DETOX) 10 MG, METHADONE (DETOX) 5 MG PO ONE (12:15)
[2020-03-24] MEDS ORDERED: METHADONE HCL 10 MG TABLET (FOR DETOX USE ONLY) ONE (12:32)
[2020-03-24] MEDS ORDERED: chlordiazePOXIDE HCL 25 MG CAPSULE ONE (12:32)
[2020-03-24] MEDS ORDERED: METHOCARBAMOL 500 MG TABLET ONE (12:32)
[2020-03-24] MEDS: chlordiazePOXIDE HCL 25 MG CAPSULE PO SCH ×3 (12:35→22:10)
[2020-03-24] MEDS: METHOCARBAMOL 500 MG TABLET PO PRN (12:37)
[2020-03-24] MEDS: PRENATAL VITAMINS W/ FOLIC ACID TABLET (FP) PO SCH (13:41)
[2020-03-24] MEDS: NICOTINE POLACRILEX 2 MG GUM BUC PRN ×2 (13:42→17:56)
[2020-03-24] MEDS: hydrOXYzine PAMOATE 25 MG CAPSULE (FP) PO SCH ×3 (14:16→22:10)
[2020-03-24 15:57] LABS: POTASSIUM 3.9 mmol/L (3.5-5.1)
[2020-03-24 15:59] LABS: ALBUMIN 4.1 g/dl (3.4-5.0); BLOOD UREA NITROGEN 11.9 mg/dL (7-18); CALCIUM 9.4 mg/dL (8.5-10.1)
[2020-03-24 16:03] LABS: CREATININE 0.8 mg/dL (0.55-1.3)
[2020-03-24 16:04] LABS: BILIRUBIN,TOTAL 0.8 mg/dL (0.2-1); TOT PROT 7.3 g/dl (6.4-8.2)
[2020-03-24 16:08] LABS: HEMATOCRIT 40.5 % (32.4-45.2); HEMOGLOBIN 13.9 GM/dL (10.7-15.3); MCH 29.5 pg (25.7-33.7); MCHC 34.4 g/dl (32.0-36.0); MEAN CELL VOLUME 85.9 fl (80-96); MEAN PLT VOLUME 10.6 fl (7.5-11.1); RBC 4.71 M/mm3 (3.60-5.2); RDW 13.4 % (11.6-15.6); WHITE BLOOD COUNT 5.7 K/mm3 (4.0-10.0)
[2020-03-24 16:56] LABS: HIV INTERPRETATION NEGATIVE (NEGATIVE)
[2020-03-24 17:02] LABS: PLATELET COUNT 171 K/MM3 (134-434)
[2020-03-24] MEDS: THIAMINE HCL 100 MG TABLET (FP) PO SCH (22:10)
[2020-03-24] MEDS: MELATONIN 5 MG TABLETS PO SCH (22:10)
[2020-03-25] MEDS: chlordiazePOXIDE HCL 25 MG CAPSULE PO PRN ×3 (01:26→20:31)
[2020-03-25] MEDS: chlordiazePOXIDE HCL 25 MG CAPSULE PO SCH ×4 (06:32→22:19)
[2020-03-25] MEDS: hydrOXYzine PAMOATE 25 MG CAPSULE (FP) PO SCH ×5 (06:33→22:19)
[2020-03-25] MEDS: NICOTINE POLACRILEX 2 MG GUM BUC PRN ×3 (06:33→20:33)
[2020-03-25] MEDS ORDERED: METHADONE HCL 5 MG TABLET (FOR DETOX USE ONLY) ONE (08:38)
[2020-03-25] MEDS ORDERED: METHADONE HCL 10 MG TABLET (FOR DETOX USE ONLY) ONE (08:38)
[2020-03-25] MEDS ORDERED: METHADONE (DETOX) 20 MG, METHADONE (DETOX) 5 MG PO ONE (10:00)
[2020-03-25] MEDS: NICOTINE 21 MG/24 HOURS TOPICAL PATCH TD SCH (10:06)
[2020-03-25] MEDS: PRENATAL VITAMINS W/ FOLIC ACID TABLET (FP) PO SCH (10:06)
[2020-03-25] MEDS: METHOCARBAMOL 500 MG TABLET PO PRN ×2 (12:54→22:19)
[2020-03-25] MEDS: cloNIDine HCL 0.1 MG TABLET PO PRN (17:46)
[2020-03-25] MEDS: THIAMINE HCL 100 MG TABLET (FP) PO SCH (22:19)
[2020-03-26] MEDS ORDERED: chlordiazePOXIDE HCL 25 MG CAPSULE PO SCH (05:00)
[2020-03-26] MEDS: hydrOXYzine PAMOATE 25 MG CAPSULE (FP) PO SCH ×5 (05:35→22:10)
[2020-03-26] MEDS: NICOTINE POLACRILEX 2 MG GUM BUC PRN ×4 (05:39→17:38)
[2020-03-26] MEDS ORDERED: METHADONE HCL 10 MG TABLET (FOR DETOX USE ONLY) PO ONE (10:00)
[2020-03-26] MEDS: cloNIDine HCL 0.1 MG TABLET PO PRN (10:23)
[2020-03-26] MEDS: PRENATAL VITAMINS W/ FOLIC ACID TABLET (FP) PO SCH (10:24)
[2020-03-26] MEDS: NICOTINE 21 MG/24 HOURS TOPICAL PATCH TD SCH (10:24)
[2020-03-26] MEDS: METHOCARBAMOL 500 MG TABLET PO PRN ×2 (12:38→20:39)
[2020-03-26] MEDS: diazePAM 5 MG TABLET PO SCH ×3 (13:15→22:10)
[2020-03-26] MEDS ORDERED: COLLOIDAL OATMEAL 1 BAR EACH TP PRN (14:08)
[2020-03-26] MEDS: MELATONIN 5 MG TABLETS PO SCH ×2 (22:10)
[2020-03-26] MEDS: THIAMINE HCL 100 MG TABLET (FP) PO SCH (22:11)
[2020-03-27] MEDS ORDERED: chlordiazePOXIDE HCL 10 MG CAPSULE PO PRN
[2020-03-27] MEDS: diazePAM 5 MG TABLET PO PRN ×2 (01:45→18:56)
[2020-03-27] MEDS ORDERED: chlordiazePOXIDE HCL 10 MG CAPSULE PO SCH (05:00)
[2020-03-27] MEDS: diazePAM 5 MG TABLET PO SCH ×3 (05:53→22:10)
[2020-03-27] MEDS: hydrOXYzine PAMOATE 25 MG CAPSULE (FP) PO SCH ×5 (05:54→22:11)
[2020-03-27] MEDS: METHOCARBAMOL 500 MG TABLET PO PRN ×3 (05:54→18:56)
[2020-03-27] MEDS: NICOTINE POLACRILEX 2 MG GUM BUC PRN ×2 (05:55→12:42)
[2020-03-27] MEDS ORDERED: METHADONE HCL 5 MG TABLET (FOR DETOX USE ONLY) ONE (08:44)
[2020-03-27] MEDS ORDERED: METHADONE HCL 10 MG TABLET (FOR DETOX USE ONLY) ONE (08:44)
[2020-03-27] MEDS ORDERED: METHADONE (DETOX) 10 MG, METHADONE (DETOX) 5 MG PO ONE (10:00)
[2020-03-27] MEDS: cloNIDine HCL 0.1 MG TABLET PO SCH ×2 (10:26→22:11)
[2020-03-27] MEDS: PRENATAL VITAMINS W/ FOLIC ACID TABLET (FP) PO SCH (10:28)
[2020-03-27] MEDS: NICOTINE 21 MG/24 HOURS TOPICAL PATCH TD SCH (10:28)
[2020-03-27] MEDS: THIAMINE HCL 100 MG TABLET (FP) PO SCH (22:11)
[2020-03-27] MEDS: MELATONIN 5 MG TABLETS PO SCH (22:12)
[2020-03-28] MEDS ORDERED: chlordiazePOXIDE HCL 10 MG CAPSULE PO SCH (05:00)
[2020-03-28] MEDS: diazePAM 5 MG TABLET PO PRN (06:04)
[2020-03-28] MEDS: hydrOXYzine PAMOATE 25 MG CAPSULE (FP) PO SCH ×3 (06:05→13:40)
[2020-03-28] MEDS: NICOTINE POLACRILEX 2 MG GUM BUC PRN ×3 (06:08→18:45)
[2020-03-28] MEDS: METHOCARBAMOL 500 MG TABLET PO PRN ×3 (08:39→22:22)
[2020-03-28] MEDS: NICOTINE 21 MG/24 HOURS TOPICAL PATCH TD SCH (09:22)
[2020-03-28] MEDS: diazePAM 5 MG TABLET PO SCH ×2 (09:22→22:22)
[2020-03-28] MEDS: PRENATAL VITAMINS W/ FOLIC ACID TABLET (FP) PO SCH (09:24)
[2020-03-28] MEDS ORDERED: METHADONE HCL 10 MG TABLET (FOR DETOX USE ONLY) PO ONE (10:00)
[2020-03-28] MEDS: cloNIDine HCL 0.1 MG TABLET PO SCH ×2 (10:53→22:22)
[2020-03-28] MEDS ORDERED: hydrOXYzine PAMOATE 25 MG CAPSULE (FP) PO SCH ×2 (17:15→22:00)
[2020-03-28] MEDS: hydrOXYzine PAMOATE 25 MG CAPSULE (FP) PO PRN (18:45)
[2020-03-28] MEDS ORDERED: SUVOREXANT 10 MG TABLET PO PRN (22:00)
[2020-03-28] MEDS: THIAMINE HCL 100 MG TABLET (FP) PO SCH (22:23)
[2020-03-29] MEDS: hydrOXYzine PAMOATE 25 MG CAPSULE (FP) PO PRN (03:28)
[2020-03-29] MEDS: METHOCARBAMOL 500 MG TABLET PO PRN (03:28)
[2020-03-29] MEDS: NICOTINE POLACRILEX 2 MG GUM BUC PRN ×2 (03:30→06:25)
[2020-03-29] MEDS ORDERED: chlordiazePOXIDE HCL 10 MG CAPSULE PO ONE (05:00)
[2020-03-29] MEDS ORDERED: METHADONE HCL 5 MG TABLET (FOR DETOX USE ONLY) PO ONE (06:00)
[2020-03-29 08:04] VITALS: BP 102/65; PULSE 85; TEMP 97.5
[2020-03-29] MEDS: cloNIDine HCL 0.1 MG TABLET PO SCH (09:14)
[2020-03-29] MEDS: PRENATAL VITAMINS W/ FOLIC ACID TABLET (FP) PO SCH (09:14)
[2020-03-30] MEDS ORDERED: diazePAM 5 MG TABLET PO ONE (10:00)
== END 2020-03-29 09:57 | disposition home or self-care (01) | DRG 773 ==
LOC: YASAS 10:19 → Y6N 12:13
PROVIDERS: ADMIT Allergy & Immunology; ATTEND Allergy & Immunology
PROC: HZ2ZZZZ Detoxification Services for Substance Abuse Treatment (ICD-10-PCS; principal; 2020-03-24)
DX: F11.23 Opioid dependence with withdrawal (principal); F10.230 Alcohol dependence with withdrawal, uncomplicated; F14.20 Cocaine dependence, uncomplicated; F17.210 Nicotine dependence, cigarettes, uncomplicated; F19.280 Other psychoactive substance dependence with psychoactive substance-induced anxiety disorder; F19.282 Other psychoactive substance dependence with psychoactive substance-induced sleep disorder; F41.1 Generalized anxiety disorder; F32.9 Major depressive disorder, single episode, unspecified; Z62.810 Personal history of physical and sexual abuse in childhood; Z91.410 Personal history of adult physical and sexual abuse; Z91.5 Personal history of self-harm
CPT/HCPCS: 36415; 80053; 85027; 86780; 87389; C9803; J0735; Q0162; U0003

== ENCOUNTER 2021-01-12 09:59 | Inpatient (IN) | payer BC ==
[2021-01-12 10:41] VITALS: BMI 18.9
[2021-01-12] MEDS ORDERED: MAG HYDROX/AL HYDROX/SIMETH 30 ML UNIT-DOSE CUP PO PRN (10:46)
[2021-01-12] MEDS ORDERED: MENTHOL/PHENOL 1 EACH UD MM PRN (10:46)
[2021-01-12] MEDS ORDERED: cloNIDine HCL 0.1 MG TABLET PO PRN (10:46)
[2021-01-12] MEDS ORDERED: methaDONE HCL 10 MG TABLET (FOR DETOX USE ONLY) PO ONE (10:46)
[2021-01-12] MEDS ORDERED: IBUPROFEN 400 MG TABLET (FP) PO PRN (10:46)
[2021-01-12] MEDS ORDERED: ONDANSETRON *ODT* 4 MG TABLET SL PRN (10:46)
[2021-01-12] MEDS ORDERED: diazePAM 5 MG TABLET PO PRN (10:46)
[2021-01-12] MEDS ORDERED: ACETAMINOPHEN 325 MG TABLET (FP) PO PRN ×2 (10:46)
[2021-01-12] MEDS ORDERED: NICOTINE 10 MG CARTRIDGE (INHALER) IH PRN (10:46)
[2021-01-12] MEDS ORDERED: METHOCARBAMOL 500 MG TABLET PO PRN (10:46)
[2021-01-12] MEDS ORDERED: MAGNESIUM HYDROX 2400MG/30ML ORAL SUSPENSION 30 ML CUP PO PRN (10:46)
[2021-01-12] MEDS ORDERED: BISMUTH SUBSALICYLATE 262 MG/15 ML BTL PO PRN (10:46)
[2021-01-12] MEDS ORDERED: MAGNESIUM CITRATE 300 ML BOTTLE PO PRN (10:46)
[2021-01-12] MEDS ORDERED: NALOXONE (NARCAN) HCL 4 MG/0.1 ML SPRAY NS PRN (10:51)
[2021-01-12] MEDS: diazePAM 5 MG TABLET PO SCH ×2 (11:55→17:32)
[2021-01-12] MEDS ORDERED: AMOXICILLIN 500 MG CAPSULE (FP) PO SCH (14:00)
[2021-01-12] MEDS: hydrOXYzine PAMOATE 25 MG CAPSULE (FP) PO SCH ×2 (15:31→17:32)
[2021-01-12 17:15] VITALS: BP 111/65; PULSE 60; TEMP 96.8
[2021-01-12 17:37] LABS: HEMATOCRIT 38.7 % (32.4-45.2); HEMOGLOBIN 13.2 GM/dL (10.7-15.3); MCH 28.9 pg (25.7-33.7); MCHC 34.2 g/dl (32.0-36.0); MEAN CELL VOLUME 84.4 fl (80-96); MEAN PLT VOLUME 9.5 fl (7.5-11.1); PLATELET COUNT 258 10^3/uL (134-434); RBC 4.59 M/mm3 (3.60-5.2); RDW 13.3 % (11.6-15.6); WHITE BLOOD COUNT 6.1 K/mm3 (4.0-10.0)
[2021-01-12 18:00] LABS: ALBUMIN 3.3 g/dl (3.4-5.0)
[2021-01-12 18:01] LABS: BLOOD UREA NITROGEN 12.4 mg/dL (7-18); CREATININE 0.9 mg/dL (0.55-1.3)
[2021-01-12 18:02] LABS: BILIRUBIN,TOTAL 0.3 mg/dL (0.2-1)
[2021-01-12] MEDS ORDERED: THIAMINE HCL 100 MG TABLET (FP) PO SCH (22:00)
[2021-01-12] MEDS ORDERED: MELATONIN 5 MG TABLETS PO SCH (22:00)
[2021-01-13] MEDS ORDERED: PRENATAL VITAMINS W/ FOLIC ACID TABLET (FP) PO SCH (10:00)
[2021-01-14] MEDS ORDERED: diazePAM 5 MG TABLET PO SCH (06:00)
[2021-01-14] MEDS ORDERED: methaDONE HCL 10 MG TABLET (FOR DETOX USE ONLY) PO ONE (10:00)
[2021-01-15] MEDS ORDERED: diazePAM 5 MG TABLET PO SCH (06:00)
[2021-01-16] MEDS ORDERED: diazePAM 5 MG TABLET PO ONE (06:00)
[2021-01-16] MEDS ORDERED: methaDONE HCL 10 MG TABLET (FOR DETOX USE ONLY) PO ONE (10:00)
== END 2021-01-12 19:39 | disposition left against medical advice (07) | DRG 770 ==
LOC: YASAS 09:59 → Y3N 10:56
PROVIDERS: ADMIT Allergy & Immunology; ATTEND Allergy & Immunology
PROC: HZ2ZZZZ Detoxification Services for Substance Abuse Treatment (ICD-10-PCS; principal; 2021-01-12)
DX: F11.23 Opioid dependence with withdrawal (principal); F10.230 Alcohol dependence with withdrawal, uncomplicated; F13.230 Sedative, hypnotic or anxiolytic dependence with withdrawal, uncomplicated; F14.20 Cocaine dependence, uncomplicated; F12.20 Cannabis dependence, uncomplicated; F17.210 Nicotine dependence, cigarettes, uncomplicated; F19.282 Other psychoactive substance dependence with psychoactive substance-induced sleep disorder; F19.280 Other psychoactive substance dependence with psychoactive substance-induced anxiety disorder; F41.9 Anxiety disorder, unspecified; Z56.0 Unemployment, unspecified; Z59.00 Homelessness unspecified
CPT/HCPCS: 36415; 80053; 81025; 85027; 86780; C9803; U0003; U0005

== ENCOUNTER 2021-01-28 18:08 | Inpatient (IN) | payer BC ==
[2021-01-28] MEDS ORDERED: IBUPROFEN 400 MG TABLET (FP) PO PRN (21:08)
[2021-01-28] MEDS ORDERED: BISMUTH SUBSALICYLATE 524 MG/30 ML PO PRN (21:08)
[2021-01-28] MEDS ORDERED: MAG HYDROX/AL HYDROX/SIMETH 30 ML UNIT-DOSE CUP PO PRN (21:08)
[2021-01-28] MEDS ORDERED: MENTHOL/PHENOL 1 EACH UD MM PRN (21:08)
[2021-01-28] MEDS ORDERED: ONDANSETRON *ODT* 4 MG TABLET SL PRN (21:08)
[2021-01-28] MEDS ORDERED: ACETAMINOPHEN 325 MG TABLET (FP) PO PRN ×2 (21:08)
[2021-01-28] MEDS ORDERED: MAGNESIUM HYDROX 2400MG/30ML ORAL SUSPENSION 30 ML CUP PO PRN (21:08)
[2021-01-28] MEDS ORDERED: MAGNESIUM CITRATE 300 ML BOTTLE PO PRN (21:08)
[2021-01-28 21:30] VITALS: BMI 18.6
[2021-01-28] MEDS: MELATONIN 5 MG TABLETS PO SCH (22:53)
[2021-01-28] MEDS: THIAMINE HCL 100 MG TABLET (FP) PO SCH (22:53)
[2021-01-28] MEDS: METHOCARBAMOL 500 MG TABLET PO PRN (22:54)
[2021-01-28] MEDS: NICOTINE POLACRILEX 2 MG GUM BUC PRN (22:57)
[2021-01-29] MEDS ORDERED: methaDONE HCL 10 MG TABLET ONE (09:08)
[2021-01-29] MEDS ORDERED: methaDONE HCL 40 MG DISPERSABLE TABLET ONE (09:09)
[2021-01-29] MEDS ORDERED: methaDONE 40 MG, methaDONE 10 MG PO ONE (10:00)
[2021-01-29] MEDS ORDERED: methaDONE HCL 10 MG TABLET PO ONE (10:00)
[2021-01-29] MEDS: PRENATAL VITAMINS W/ FOLIC ACID TABLET (FP) PO SCH (10:18)
[2021-01-29] MEDS: METHOCARBAMOL 500 MG TABLET PO PRN ×2 (10:18→18:14)
[2021-01-29] MEDS: NICOTINE 21 MG/24 HOURS TOPICAL PATCH TD SCH (10:19)
[2021-01-29] MEDS: NICOTINE POLACRILEX 2 MG GUM BUC PRN (10:21)
[2021-01-29 12:32] LABS: MCH 28.5 pg (25.7-33.7); MCHC 34.1 g/dl (32.0-36.0); MEAN CELL VOLUME 83.6 fl (80-96); MEAN PLT VOLUME 9.3 fl (7.5-11.1); PLATELET COUNT 286 10^3/uL (134-434); RDW 13.3 % (11.6-15.6); WHITE BLOOD COUNT 5.1 K/mm3 (4.0-10.0)
[2021-01-29 12:40] LABS: CALCIUM 9.6 mg/dL (8.5-10.1)
[2021-01-29 12:41] LABS: ALBUMIN 3.6 g/dl (3.4-5.0); BLOOD UREA NITROGEN 19.1 mg/dL (7-18)
[2021-01-29 12:44] LABS: TOT PROT 8.3 g/dl (6.4-8.2)
[2021-01-29 12:45] LABS: BILIRUBIN,TOTAL 0.4 mg/dL (0.2-1)
[2021-01-30] MEDS: MELATONIN 5 MG TABLETS PO SCH (00:27)
[2021-01-30] MEDS: THIAMINE HCL 100 MG TABLET (FP) PO SCH (00:27)
[2021-01-30] MEDS ORDERED: methaDONE HCL 40 MG DISPERSABLE TABLET ONE (04:23)
[2021-01-30] MEDS ORDERED: methaDONE HCL 10 MG TABLET ONE (04:23)
[2021-01-30] MEDS ORDERED: methaDONE HCL 10 MG TABLET PO SCH (06:00)
[2021-01-30] MEDS ORDERED: methaDONE 40 MG, methaDONE 10 MG PO SCH (06:00)
[2021-01-30] MEDS: NICOTINE POLACRILEX 2 MG GUM BUC PRN (06:28)
[2021-01-30 08:19] VITALS: PULSE 53
[2021-01-30 10:02] VITALS: BP 99/66; TEMP 98.4
[2021-01-30] MEDS: NICOTINE 21 MG/24 HOURS TOPICAL PATCH TD SCH (10:31)
[2021-01-30] MEDS: PRENATAL VITAMINS W/ FOLIC ACID TABLET (FP) PO SCH (10:31)
== END 2021-01-30 12:20 | disposition other institution (70) | DRG 773 ==
LOC: YASAS 18:08 → Y6N 22:14
PROVIDERS: ADMIT Allergy & Immunology; ATTEND Allergy & Immunology
PROC: HZ2ZZZZ Detoxification Services for Substance Abuse Treatment (ICD-10-PCS; principal; 2021-01-28)
DX: F13.230 Sedative, hypnotic or anxiolytic dependence with withdrawal, uncomplicated (principal); F11.20 Opioid dependence, uncomplicated; F14.20 Cocaine dependence, uncomplicated; F12.10 Cannabis abuse, uncomplicated; F17.213 Nicotine dependence, cigarettes, with withdrawal; F41.9 Anxiety disorder, unspecified; F41.1 Generalized anxiety disorder; F19.24 Other psychoactive substance dependence with psychoactive substance-induced mood disorder; F19.280 Other psychoactive substance dependence with psychoactive substance-induced anxiety disorder; F32.A Depression, unspecified; Z62.810 Personal history of physical and sexual abuse in childhood; Z91.51 Personal history of suicidal behavior; Z56.0 Unemployment, unspecified; Z59.00 Homelessness unspecified
CPT/HCPCS: 36415; 80053; 81025; 85027; 86780; C9803; U0003; U0005

== ENCOUNTER 2021-01-30 12:59 | Inpatient (IN) | payer BC ==
[2021-01-30] MEDS ORDERED: hydrOXYzine PAMOATE 25 MG CAPSULE (FP) PO PRN (14:15)
[2021-01-30] MEDS ORDERED: MAGNESIUM CITRATE 300 ML BOTTLE PO PRN (14:15)
[2021-01-30] MEDS ORDERED: P-EPHED 60MG/TRIPROLIDI 2.5MG TABLET PO PRN (14:15)
[2021-01-30] MEDS ORDERED: MAG HYDROX/AL HYDROX/SIMETH 30 ML UNIT-DOSE CUP PO PRN (14:15)
[2021-01-30] MEDS ORDERED: ACETAMINOPHEN 325 MG TABLET (FP) PO PRN (14:15)
[2021-01-30] MEDS ORDERED: guaiFENesin 200 MG/10 ML 10 ML UNIT-DOSE CUPS PO PRN (14:15)
[2021-01-30] MEDS ORDERED: IBUPROFEN 400 MG TABLET (FP) PO PRN (14:15)
[2021-01-30] MEDS ORDERED: LOPERAMIDE HCL 2 MG CAPSULE PO PRN (14:15)
[2021-01-30] MEDS ORDERED: MENTHOL/PHENOL 1 EACH UD MM PRN (14:15)
[2021-01-30] MEDS ORDERED: ONDANSETRON *ODT* 4 MG TABLET SL PRN (14:18)
[2021-01-30] MEDS: MIRTAZAPINE 15 MG TABLET (FP) PO SCH (21:55)
[2021-01-30] MEDS: busPIRone HCL 5 MG TABLET PO SCH (21:58)
[2021-01-30] MEDS: THIAMINE HCL 100 MG TABLET (FP) PO SCH (21:59)
[2021-01-30] MEDS ORDERED: MELATONIN 5 MG TABLETS PO SCH (22:00)
[2021-01-31] MEDS ORDERED: methaDONE HCL 40 MG DISPERSABLE TABLET ONE (04:26)
[2021-01-31] MEDS ORDERED: methaDONE HCL 10 MG TABLET ONE (04:26)
[2021-01-31] MEDS ORDERED: methaDONE 40 MG, methaDONE 10 MG PO SCH (06:00)
[2021-01-31] MEDS ORDERED: methaDONE 40 MG, methaDONE 10 MG PO ONE (06:00)
[2021-01-31] MEDS ORDERED: methaDONE HCL 10 MG TABLET PO SCH (06:00)
[2021-01-31] MEDS: busPIRone HCL 5 MG TABLET PO SCH ×3 (06:54→21:53)
[2021-01-31] MEDS: PRENATAL VITAMINS W/ FOLIC ACID TABLET (FP) PO SCH (10:40)
[2021-01-31] MEDS: NICOTINE 7 MG/24 HOURS TOPICAL PATCH TD SCH (10:41)
[2021-01-31] MEDS: NICOTINE 10 MG CARTRIDGE (INHALER) IH PRN (10:42)
[2021-01-31] MEDS: MIRTAZAPINE 15 MG TABLET (FP) PO SCH (21:52)
[2021-01-31] MEDS: THIAMINE HCL 100 MG TABLET (FP) PO SCH (21:52)
[2021-02-01] MEDS ORDERED: methaDONE HCL 10 MG TABLET PO ONE (06:00)
[2021-02-01] MEDS ORDERED: methaDONE 40 MG, methaDONE 20 MG PO ONE (06:00)
[2021-02-01] MEDS ORDERED: methaDONE HCL 10 MG TABLET ONE (06:24)
[2021-02-01] MEDS ORDERED: methaDONE HCL 40 MG DISPERSABLE TABLET ONE (06:24)
[2021-02-01] MEDS: busPIRone HCL 5 MG TABLET PO SCH ×3 (06:24→21:49)
[2021-02-01] MEDS: NICOTINE 7 MG/24 HOURS TOPICAL PATCH TD SCH (10:39)
[2021-02-01] MEDS: PRENATAL VITAMINS W/ FOLIC ACID TABLET (FP) PO SCH (10:39)
[2021-02-01] MEDS: NICOTINE 10 MG CARTRIDGE (INHALER) IH PRN (10:41)
[2021-02-01] MEDS ORDERED: PT OWN MED DRAWER 7, Y5N ONE (13:35)
[2021-02-01] MEDS: THIAMINE HCL 100 MG TABLET (FP) PO SCH (21:49)
[2021-02-01] MEDS: MIRTAZAPINE 15 MG TABLET (FP) PO SCH (21:49)
[2021-02-02] MEDS ORDERED: PT OWN MED DRAWER 7, Y5N ONE ×3 (02:29→20:40)
[2021-02-02] MEDS ORDERED: methaDONE HCL 10 MG TABLET PO SCH (06:00)
[2021-02-02] MEDS ORDERED: methaDONE HCL 40 MG DISPERSABLE TABLET ONE (06:17)
[2021-02-02] MEDS: busPIRone HCL 5 MG TABLET PO SCH ×3 (06:17→22:04)
[2021-02-02] MEDS: methaDONE 40 MG, methaDONE 30 MG PO SCH (06:17)
[2021-02-02] MEDS ORDERED: methaDONE HCL 10 MG TABLET ONE (06:17)
[2021-02-02] MEDS: NICOTINE 7 MG/24 HOURS TOPICAL PATCH TD SCH (11:10)
[2021-02-02] MEDS: PRENATAL VITAMINS W/ FOLIC ACID TABLET (FP) PO SCH (11:10)
[2021-02-02] MEDS ORDERED: COLLOIDAL OATMEAL 1 BAR EACH TP PRN (11:42)
[2021-02-02] MEDS: THIAMINE HCL 100 MG TABLET (FP) PO SCH (22:04)
[2021-02-02] MEDS: MIRTAZAPINE 15 MG TABLET (FP) PO SCH (22:04)
[2021-02-03] MEDS ORDERED: methaDONE HCL 40 MG DISPERSABLE TABLET ONE (03:24)
[2021-02-03] MEDS ORDERED: methaDONE HCL 10 MG TABLET ONE (03:24)
[2021-02-03] MEDS ORDERED: PT OWN MED DRAWER 7, Y5N ONE ×2 (03:26→13:53)
[2021-02-03] MEDS: methaDONE 40 MG, methaDONE 30 MG PO SCH (06:13)
[2021-02-03] MEDS: busPIRone HCL 5 MG TABLET PO SCH ×3 (06:13→21:47)
[2021-02-03] MEDS: NICOTINE 7 MG/24 HOURS TOPICAL PATCH TD SCH (11:00)
[2021-02-03] MEDS: PRENATAL VITAMINS W/ FOLIC ACID TABLET (FP) PO SCH (11:00)
[2021-02-03] MEDS: NICOTINE 10 MG CARTRIDGE (INHALER) IH PRN (11:02)
[2021-02-03] MEDS: MIRTAZAPINE 15 MG TABLET (FP) PO SCH (21:47)
[2021-02-03] MEDS: THIAMINE HCL 100 MG TABLET (FP) PO SCH (21:47)
[2021-02-04] MEDS ORDERED: methaDONE HCL 40 MG DISPERSABLE TABLET ONE (03:33)
[2021-02-04] MEDS ORDERED: methaDONE HCL 10 MG TABLET ONE (03:33)
[2021-02-04] MEDS: busPIRone HCL 5 MG TABLET PO SCH ×3 (06:27→23:11)
[2021-02-04] MEDS: methaDONE 40 MG, methaDONE 30 MG PO SCH (06:27)
[2021-02-04] MEDS: NICOTINE 7 MG/24 HOURS TOPICAL PATCH TD SCH (11:25)
[2021-02-04] MEDS: PRENATAL VITAMINS W/ FOLIC ACID TABLET (FP) PO SCH (11:26)
[2021-02-04] MEDS ORDERED: PT OWN MED DRAWER 7, Y5N ONE (13:37)
[2021-02-04] MEDS: THIAMINE HCL 100 MG TABLET (FP) PO SCH (23:11)
[2021-02-04] MEDS: MIRTAZAPINE 15 MG TABLET (FP) PO SCH (23:11)
[2021-02-05] MEDS ORDERED: methaDONE HCL 40 MG DISPERSABLE TABLET ONE (03:06)
[2021-02-05] MEDS ORDERED: methaDONE HCL 10 MG TABLET ONE (03:06)
[2021-02-05] MEDS: methaDONE 40 MG, methaDONE 30 MG PO SCH (06:34)
[2021-02-05] MEDS: busPIRone HCL 5 MG TABLET PO SCH (06:34)
[2021-02-05] MEDS: PRENATAL VITAMINS W/ FOLIC ACID TABLET (FP) PO SCH (11:06)
[2021-02-05] MEDS: NICOTINE 7 MG/24 HOURS TOPICAL PATCH TD SCH (11:06)
[2021-02-05] MEDS: NICOTINE 10 MG CARTRIDGE (INHALER) IH PRN (11:07)
[2021-02-05] MEDS: busPIRone HCL 10 MG TABLET (FP) PO SCH ×2 (13:31→21:35)
[2021-02-05] MEDS: MIRTAZAPINE 15 MG TABLET (FP) PO SCH (21:35)
[2021-02-05] MEDS: THIAMINE HCL 100 MG TABLET (FP) PO SCH (21:35)
[2021-02-06] MEDS ORDERED: methaDONE HCL 40 MG DISPERSABLE TABLET ONE (04:06)
[2021-02-06] MEDS ORDERED: methaDONE HCL 10 MG TABLET ONE (04:06)
[2021-02-06] MEDS: busPIRone HCL 10 MG TABLET (FP) PO SCH ×3 (06:50→21:43)
[2021-02-06] MEDS: methaDONE 40 MG, methaDONE 30 MG PO SCH (06:50)
[2021-02-06] MEDS: PRENATAL VITAMINS W/ FOLIC ACID TABLET (FP) PO SCH (10:09)
[2021-02-06] MEDS: NICOTINE 7 MG/24 HOURS TOPICAL PATCH TD SCH (10:10)
[2021-02-06] MEDS: NICOTINE 10 MG CARTRIDGE (INHALER) IH PRN (10:11)
[2021-02-06] MEDS: MIRTAZAPINE 15 MG TABLET (FP) PO SCH (21:42)
[2021-02-06] MEDS: THIAMINE HCL 100 MG TABLET (FP) PO SCH (21:43)
[2021-02-06] MEDS: NICOTINE POLACRILEX 2 MG GUM BUC PRN (21:44)
[2021-02-07] MEDS ORDERED: methaDONE HCL 10 MG TABLET ONE (03:14)
[2021-02-07] MEDS ORDERED: methaDONE HCL 40 MG DISPERSABLE TABLET ONE (03:14)
[2021-02-07] MEDS: methaDONE 40 MG, methaDONE 30 MG PO SCH (06:36)
[2021-02-07] MEDS: busPIRone HCL 10 MG TABLET (FP) PO SCH ×3 (06:36→21:44)
[2021-02-07] MEDS: PRENATAL VITAMINS W/ FOLIC ACID TABLET (FP) PO SCH (10:54)
[2021-02-07] MEDS: NICOTINE 7 MG/24 HOURS TOPICAL PATCH TD SCH (10:54)
[2021-02-07] MEDS: NICOTINE POLACRILEX 2 MG GUM BUC PRN (10:55)
[2021-02-07] MEDS: THIAMINE HCL 100 MG TABLET (FP) PO SCH (21:44)
[2021-02-07] MEDS: MIRTAZAPINE 15 MG TABLET (FP) PO SCH (21:44)
[2021-02-08] MEDS ORDERED: methaDONE HCL 40 MG DISPERSABLE TABLET ONE (03:21)
[2021-02-08] MEDS ORDERED: methaDONE HCL 10 MG TABLET ONE (03:21)
[2021-02-08] MEDS: methaDONE 40 MG, methaDONE 30 MG PO SCH (06:59)
[2021-02-08] MEDS: busPIRone HCL 10 MG TABLET (FP) PO SCH ×3 (07:00→22:09)
[2021-02-08] MEDS: PRENATAL VITAMINS W/ FOLIC ACID TABLET (FP) PO SCH (10:33)
[2021-02-08] MEDS: NICOTINE 7 MG/24 HOURS TOPICAL PATCH TD SCH (10:33)
[2021-02-08] MEDS: THIAMINE HCL 100 MG TABLET (FP) PO SCH (22:09)
[2021-02-08] MEDS: MIRTAZAPINE 15 MG TABLET (FP) PO SCH (22:09)
[2021-02-09] MEDS ORDERED: methaDONE HCL 10 MG TABLET ONE (05:38)
[2021-02-09] MEDS ORDERED: methaDONE HCL 40 MG DISPERSABLE TABLET ONE (05:38)
[2021-02-09] MEDS: methaDONE 40 MG, methaDONE 30 MG PO SCH (07:02)
[2021-02-09] MEDS: busPIRone HCL 10 MG TABLET (FP) PO SCH ×3 (07:03→21:49)
[2021-02-09] MEDS: PRENATAL VITAMINS W/ FOLIC ACID TABLET (FP) PO SCH (10:33)
[2021-02-09] MEDS: NICOTINE 7 MG/24 HOURS TOPICAL PATCH TD SCH (10:33)
[2021-02-09] MEDS: NICOTINE POLACRILEX 2 MG GUM BUC PRN ×2 (10:34→21:51)
[2021-02-09] MEDS: MIRTAZAPINE 15 MG TABLET (FP) PO SCH (21:49)
[2021-02-09] MEDS: THIAMINE HCL 100 MG TABLET (FP) PO SCH (21:50)
[2021-02-10] MEDS ORDERED: methaDONE HCL 10 MG TABLET ONE (04:02)
[2021-02-10] MEDS ORDERED: methaDONE HCL 40 MG DISPERSABLE TABLET ONE (04:02)
[2021-02-10] MEDS: busPIRone HCL 10 MG TABLET (FP) PO SCH ×3 (06:37→21:54)
[2021-02-10] MEDS: methaDONE 40 MG, methaDONE 30 MG PO SCH (06:37)
[2021-02-10] MEDS: NICOTINE 7 MG/24 HOURS TOPICAL PATCH TD SCH (10:36)
[2021-02-10] MEDS: PRENATAL VITAMINS W/ FOLIC ACID TABLET (FP) PO SCH (10:36)
[2021-02-10] MEDS: NICOTINE 10 MG CARTRIDGE (INHALER) IH PRN (10:37)
[2021-02-10] MEDS: THIAMINE HCL 100 MG TABLET (FP) PO SCH (21:54)
[2021-02-10] MEDS: MIRTAZAPINE 15 MG TABLET (FP) PO SCH (21:54)
[2021-02-10] MEDS: MAGNESIUM HYDROX 2400MG/30ML ORAL SUSPENSION 30 ML CUP PO PRN (21:55)
[2021-02-10] MEDS: NICOTINE POLACRILEX 2 MG GUM BUC PRN (21:57)
[2021-02-11] MEDS ORDERED: methaDONE HCL 40 MG DISPERSABLE TABLET ONE (05:53)
[2021-02-11] MEDS ORDERED: methaDONE HCL 10 MG TABLET ONE (05:53)
[2021-02-11] MEDS: busPIRone HCL 10 MG TABLET (FP) PO SCH ×3 (06:36→21:53)
[2021-02-11] MEDS: methaDONE 40 MG, methaDONE 30 MG PO SCH (06:37)
[2021-02-11] MEDS: NICOTINE 7 MG/24 HOURS TOPICAL PATCH TD SCH (10:24)
[2021-02-11] MEDS: NICOTINE 10 MG CARTRIDGE (INHALER) IH PRN (10:25)
[2021-02-11] MEDS: PRENATAL VITAMINS W/ FOLIC ACID TABLET (FP) PO SCH (10:25)
[2021-02-11] MEDS: MAGNESIUM HYDROX 2400MG/30ML ORAL SUSPENSION 30 ML CUP PO PRN (14:18)
[2021-02-11] MEDS: MIRTAZAPINE 15 MG TABLET (FP) PO SCH (21:53)
[2021-02-11] MEDS: THIAMINE HCL 100 MG TABLET (FP) PO SCH (21:53)
[2021-02-12] MEDS ORDERED: methaDONE HCL 10 MG TABLET ONE (04:07)
[2021-02-12] MEDS ORDERED: methaDONE HCL 40 MG DISPERSABLE TABLET ONE (04:07)
[2021-02-12] MEDS: methaDONE 40 MG, methaDONE 30 MG PO SCH (06:44)
[2021-02-12] MEDS: busPIRone HCL 10 MG TABLET (FP) PO SCH (06:44)
[2021-02-12 07:23] VITALS: BP 126/79; PULSE 79; TEMP 97.2
[2021-02-12] MEDS: PRENATAL VITAMINS W/ FOLIC ACID TABLET (FP) PO SCH (09:58)
[2021-02-12] MEDS: NICOTINE 7 MG/24 HOURS TOPICAL PATCH TD SCH (09:59)
== END 2021-02-12 11:25 | disposition home or self-care (01) | DRG 772 ==
LOC: YASAS 12:59 → Y5N 13:01
PROVIDERS: ADMIT Allergy & Immunology; ATTEND Allergy & Immunology
PROC: HZ42ZZZ Group Counseling for Substance Abuse Treatment, Cognitive-Behavioral (ICD-10-PCS; principal; 2021-01-30)
DX: F11.20 Opioid dependence, uncomplicated (principal); F13.20 Sedative, hypnotic or anxiolytic dependence, uncomplicated; F14.20 Cocaine dependence, uncomplicated; F12.10 Cannabis abuse, uncomplicated; F17.210 Nicotine dependence, cigarettes, uncomplicated; F19.280 Other psychoactive substance dependence with psychoactive substance-induced anxiety disorder; F19.24 Other psychoactive substance dependence with psychoactive substance-induced mood disorder; Z62.810 Personal history of physical and sexual abuse in childhood; Z91.410 Personal history of adult physical and sexual abuse; Z59.01 Sheltered homelessness
CPT/HCPCS: Q0162